=== PATIENT | female | born 1970 | race Native Hawaiian/Other Pacific Islander ===

== ENCOUNTER 2017-01-02 16:24 | Emergency (ER) | payer OTHER ==
[2017-01-02 16:42] VITALS: RESP 16; TEMP 97.8; O2SAT 98
--- NOTE | 2017-01-02 16:55 | C.PDOC ---
History Of Present Illness 46 y/o female presents to the ED with complains of right foot pain. Pt states she was working and a piece of metal merchandise fell off of counter and hit her foot. Pt denies injury elsewhere. No weakness, numbness or any other complaints. Time Seen by Provider: 01/02/17 16:39 Chief Complaint (Nursing): Lower Extremity Problem/Injury History Per: Patient History/Exam Limitations: no limitations Onset/Duration Of Symptoms: Hrs Current Symptoms Are (Timing): Still Present Severity: Mild Recent travel outside of the [place]: No - Ankle/Foot Description Of Injury: Struck With Object Past Medical History Reviewed: Historical Data, Nursing Documentation, Vital Signs Vital Signs: Last Vital Signs Temp 97.8 F 01/02/17 16:38 Pulse 78 01/02/17 16:38 Resp 16 01/02/17 16:38 BP 176/114 H 01/02/17 16:38 Pulse Ox 98 01/02/17 16:59 - Medical History PMH: HTN Family History: States: Unknown Family Hx - Social History Hx Alcohol Use: No Hx Substance Use: No - Immunization History Hx Tetanus Toxoid Vaccination: No Hx Influenza Vaccination: No Hx Pneumococcal Vaccination: No Review Of Systems Except As Marked, All Systems Reviewed And Found Negative. Musculoskeletal: Positive for: Foot Pain (right) Neurological: Negative for: Weakness, Numbness Physical Exam - Physical Exam Additional Physical Exam Comments: Constitutional: No acute distress. Head: Normocephalic. Atraumatic. Musculoskeletal: Tenderness right 5th digit and dorsal/lateral aspect foot. No obvious deformity. Skin: No rashes. Neurologic: Alert, no focal deficit. ED Course And Treatment O2 Sat by Pulse Oximetry: 98 Medical Decision Making Medical Decision Making: Plan: * XR right foot * ibuprofen Disposition - Disposition Disposition: HOME/ ROUTINE Disposition Time: 18:12 Condition: STABLE Prescriptions: Ibuprofen [Motrin] 1 tab PO Q6 #30 tab Famotidine [Pepcid] 1 tab PO BID #14 tab Instructions: Foot Contusion (ED) Forms: Work Excuse - Clinical Impression Clinical Impression: Foot contusion - Scribe Statement The provider has reviewed the documentation as recorded by the Cyril Castaneda Provider Attestation: All medical record entries made by the Adenibpratibha were at my direction and personally dictated by me. I have reviewed the chart and agree that the record accurately reflects my personal performance of the history, physical exam, medical decision making, and the department course for this patient. I have also personally directed, reviewed, and agree with the discharge instructions and disposition.
[2017-01-02 18:21] VITALS: BP 123/75; PULSE 74
--- NOTE | 2017-01-03 10:02 | RAD ---
PROCEDURE: Right Foot Radiographs. HISTORY: R foot pain, object fell on foot COMPARISON: None. FINDINGS: BONES: . No fracture. Well corticated accessory ossification centers -os tibialis externum an os peroneum are noted JOINTS: First metatarsal-phalangeal joint space narrowing consistent with early degenerative changes are noted SOFT TISSUES: Normal. OTHER FINDINGS: A small Achilles tendon insertional enthesophyte blends with the posterior cortical minimal spurring IMPRESSION: No fracture seen. Incidental other findings as noted above
== END 2017-01-02 18:20 | disposition home or self-care (01) ==
LOC: C.ER 16:24
DX: S90.31XA Contusion of right foot, initial encounter (principal); W22.8XXA Striking against or struck by other objects, initial encounter; Y93.89 Activity, other specified; Y92.89 Other specified places as the place of occurrence of the external cause; Y99.0 Civilian activity done for income or pay